=== PATIENT | male | born 1990 | race African-American/Black ===

== ENCOUNTER 2016-09-08 15:45 | Emergency (ER) | payer SELFPAY ==
[~2016-09-08] VITALS: Ht 182.9 cm; Wt 181.4 kg
--- NOTE | 2016-09-08 15:59 | NUR ---
pt is in room #1b. dr Bahena evaluated the pt.
[2016-09-08] MEDS ORDERED: ONDANSETRON ODT 4 MG TAB.RAPDIS SL ONE (16:15)
[2016-09-08] MEDS ORDERED: ONDANSETRON ODT 4 MG TAB.RAPDIS ONE (16:19)
[2016-09-08] MEDS ORDERED: ONDANSETRON 4 MG/2 ML VIAL IM ONE (16:30)
[2016-09-08] MEDS ORDERED: ONDANSETRON 4 MG/2 ML VIAL ONE (16:33)
--- NOTE | 2016-09-08 18:31 | NUR ---
pt was re-evaluated by dr mckeon. pt was d/c to home. d/c instructions given to the pt.
[2016-09-08 18:32] VITALS: BP 132/81
== END 2016-09-08 18:33 | disposition home or self-care (01) ==
LOC: ER 15:45
DX: R11.2 Nausea with vomiting, unspecified (principal); T50.905A Adverse effect of unspecified drugs, medicaments and biological substances, initial encounter; I10 Essential (primary) hypertension; Y92.89 Other specified places as the place of occurrence of the external cause
CPT/HCPCS: 93005; A4663; J2405; Q0162